=== PATIENT | male | born 1930 | race Caucasian/White ===

== ENCOUNTER 2018-02-16 17:16 | Emergency (ER) | payer OTHER ==
[~2018-02-16] VITALS: Ht 182.9 cm; Wt 61.7 kg
[~2018-02-16 17:16] MED LIST: AMOXICILLIN875 MG PO; HYDROCHLOROTHIA25 M2 PO; NOHOMEMEDICATIONS; NORCO 5-325 TA1 EACH PO; PREDNISONE 10 M10 MG PO
[2018-02-16] MEDS ORDERED: COLCHICINE0.6 MG PO (17:55)
[2018-02-16] MEDS ORDERED: TRAMADOL 50 MG50 MG PO (17:55)
[2018-02-16] MEDS ORDERED: NAPROXEN375 MG PO (17:55)
[2018-02-16 18:22] VITALS: BP 112/90
== END 2018-02-16 18:23 | disposition home or self-care (01) ==
LOC: ER 17:16
DX: M10.071 Idiopathic gout, right ankle and foot (principal)